=== PATIENT | female | born 1960 | race Caucasian/White ===

== ENCOUNTER 2017-06-15 07:56 | Emergency (ER) | payer BC ==
[2017-06-15 07:56] VITALS: BMI 37.1
[2017-06-15 08:14] VITALS: TEMP 98
--- NOTE | 2017-06-15 08:15 | ED PDOC ---
Arrival/HPI - General Time Seen by Provider: 06/15/17 07:57 Historian: Patient - History of Present Illness Narrative History of Present Illness (Text): you were treated in the ED today for hx of cholesterol, hypertension, thryoid, reflux and clarified having left shoulder/back of shoulder pain but otherwise without any fall/injury/neck or spinal tenderness or any other back pain/nausea/ vomiting/headache/dizziness/difficulty breathing/chest pain/abdomen pain/ numbness/tingling/loss of limb function/pain with urination/travel/prior blood clots/prior cancer/hormonal therapy. 06/15/17 08:12 Time/Duration: 24 hours Symptom Onset: Gradual Symptom Course: Unchanged Quality: Aching Severity Level: 2 Activities at Onset: Rest Context: Sitting Past Medical History - Provider Review Nursing Documentation Reviewed: Yes - Travel History Have you recently traveled outside [place] w/in the past 3 mons?: No - Cardiac Hx Hypertension: Yes - Pulmonary Hx Respiratory Disorders: No - Neurological Hx Neurological Disorder: No - HEENT Hx HEENT Disorder: No - Renal Hx Renal Disorder: No - Endocrine/Metabolic Hx Hypothyroidism: Yes - Hematological/Oncological Hx Blood Disorders: No Hx Hepatitis A: No Hx Hepatitis B: No Hx Hepatitis C: No - Integumentary Hx Dermatological Disorder: No - Musculoskeletal/Rheumatological Hx Musculoskeletal Disorders: No Hx Falls: No - Gastrointestinal Hx Crohn's Disease: No Hx Diverticulitis: No Hx Gall Bladder Disease: No Hx Gastritis: No Hx Pancreatitis: No - Genitourinary/Gynecological Hx Genitourinary Disorders: No - Psychiatric Hx Substance Use: No - Anesthesia Hx Anesthesia: Yes Hx Anesthesia Reactions: No Hx Malignant Hyperthermia: No - Suicidal Assessment Feels Threatened In Home Enviroment: No Family/Social History - Physician Review Nursing Documentation Reviewed: Yes Family/Social History: No Known Family HX Smoking Status: Never Smoked Hx Alcohol Use: No Hx Substance Use: No Allergies/Home Meds Allergies/Adverse Reactions: Allergies No Known Allergies Allergy (Verified 06/15/17 08:12) Home Medications: Home Meds Medication Instructions Recorded Confirmed Levothyroxine [Synthroid] 112 mcg PO DAILY 03/10/17 06/15/17 Nebivolol [Bystolic] 10 mg PO DAILY 03/10/17 06/15/17 Review of Systems - Review of Systems Constitutional: Normal Eyes: Normal ENT: Normal Respiratory: Normal Cardiovascular: Normal Gastrointestinal: Normal Genitourinary Female: Normal Musculoskeletal: Arthralgias Skin: Normal Neurological: Normal Endocrine: Normal Hemo/Lymphatic: Normal Psychiatric: Normal Physical Exam Vital Signs Reviewed: Yes Vital Signs Temp Pulse Resp BP Pulse Ox 06/15/17 09:14 66 16 142/76 99 06/15/17 08:49 62 18 152/108 H 98 06/15/17 08:12 98.0 F 62 18 194/97 H 98 Appearance: Positive for: Well-Appearing, Non-Toxic, Uncomfortable Pain Distress: None Mental Status: Positive for: Alert and Oriented X 3 - Systems Exam Head: Present: Atraumatic, Normocephalic Pupils: Present: PERRL Extroacular Muscles: Present: EOMI Conjunctiva: Present: Normal Ears: Present: Normal Mouth: Present: Moist Mucous Membranes Pharnyx: Present: Normal Nose (External): Present: Atraumatic Nose (Internal): Present: Normal Inspection Neck: Present: Normal Range of Motion, Other (no c-t-l spinal or paraspinal tenderness) Respiratory/Chest: Present: Clear to Auscultation, Good Air Exchange Cardiovascular: Present: Regular Rate and Rhythm Abdomen: No: Tenderness, Distention, Normal Bowel Sounds, Peritoneal Signs, Rebound, Guarding, McBurney's Point Tender, Rovsing's Sign Present, Hernias, Feeding Tubes, Ostomy Tubes, Mass/Organomegaly, Scars, Other Back: Present: Normal Inspection Upper Extremity: Present: Normal Inspection, Other (except: left upper extremity good range of motion/warm/sensation/pink/radial pulse with mild discomfort to the left front/back of shoulder and no other bony tenderness,) Lower Extremity: Present: Normal Inspection Neurological: Present: GCS=15, CN II-XII Intact, Speech Normal, Motor Func Grossly Intact Skin: Present: Warm, Normal Color Psychiatric: Present: Alert, Oriented x 3, Normal Insight, Normal Concentration Medical Decision Making ED Course and Treatment: you were treated in the ED today for hx of cholesterol, hypertension, thryoid, reflux and clarified having left shoulder/back of shoulder pain but otherwise without any fall/injury/neck or spinal tenderness or any other back pain/nausea/ vomiting/headache/dizziness/difficulty breathing/chest pain/abdomen pain/ numbness/tingling/loss of limb function/pain with urination/travel/prior blood clots/prior cancer/hormonal therapy. You were otherwise breathing easily, talking easily, good strength/sensation, walking easily, clear lungs, no abdomen tenderness, left upper extremity good range of motion/warm/sensation/ pink/radial pulse with mild discomfort to the left front/back of shoulder and no other bony tenderness, no fever temp 98, stable heart rate 62, stable breathing rate 16, excellent oxygen level 98% room air, elevated blood pressure 194/97 which we recommend repeat in 2-3 days primary care office to determine further treatment, you have blood tests no infection count 6.0, stable blood level hemoglobin 12/platelets 290, stable chemistry, heart blood test less than 0.01, test don't get menstrual periods anymore, radiology chest xray shows no active disease left shoulder xray shows no fracture, ECG normal sinus rhythm, toradol, flexeril, observation done in the ED with improvement, counselled to wear left sling for support and be non-weight bearing till first clinic vist and thus discharged home with ride. 1. Recommend tylenol or motrin as directed for pain. 2. Recommend flexeril as directed for breakthrough pain and don't work/drive/drink alcohol when using. 3. Recommend follow-up primary care 2-3 days to review symptoms, referral to orthopedics clinic and cardiology clinic to review your symptoms. 4. If any worsening pain, fever, chills, nausea , vomiting, difficulty breathing, numbness, loss of limb function, pain with urination or any medical condition then return to the ED. Report Date : 06/15/2017 09:46:57 Procedure: Chest xray Dictator : Braxton Moore MD IMPRESSION: No active disease. Report Date : 06/15/2017 10:11:41 PROCEDURE: Radiographs of the Left Shoulder Dictator : Braxton Moore MD IMPRESSION: Normal radiographs of the left shoulder. 06/15/17 10:32 06/15/17 10:32 Reassessment Condition: Re-examined, Improved - Lab Interpretations Lab Results: 06/15/17 08:20 06/15/17 08:20 Lab Results 06/15/17 08:20: Sodium 146, Potassium 4.2, Chloride 111 H, Carbon Dioxide 23, Anion Gap 16, BUN 12, Creatinine 0.7, Est GFR ( Amer) > 60, Est GFR (Non- Af Amer) > 60, Random Glucose 107, Calcium 9.2, Magnesium 2.1, Total Bilirubin 0.4, AST 25, ALT 23, Alkaline Phosphatase 94, Lactate Dehydrogenase 469, Total Creatine Kinase 92, Troponin I < 0.01, Total Protein 7.8, Albumin 4.2, Globulin 3.6, Albumin/Globulin Ratio 1.1, Lipase 71 06/15/17 08:20: PT 12.9 H, INR 1.12 H, APTT 29.3 06/15/17 08:20: WBC 6.0, RBC 4.26, Hgb 12.2, Hct 37.4, MCV 87.8, MCH 28.6, MCHC 32.6, RDW 14.1, Plt Count 290, MPV 10.4, Gran % 61.3, Lymph % (Auto) 29.3, [place] % (Auto) 7.9 H, Eos % (Auto) 1.2 L, Baso % (Auto) 0.3, Gran # 3.67, Lymph # ( Auto) 1.8, [place] # (Auto) 0.5, Eos # (Auto) 0.1, Baso # (Auto) 0.02 I have reviewed the lab results: Yes - RAD Interpretation Radiology Orders: 06/15/17 08:07 CHEST TWO VIEWS (PA/LAT) [RAD] Stat 06/15/17 08:08 SHOULDER LEFT [RAD] Stat 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 No Sleep Is patient sleeping during reassessment? No Presence of Pain Presence of Pain Yes Pain Scale Used Pain Scale Used Numeric Location Left, Right or Bilateral Left Pain Location Body Site Shoulder Description Description Intermittent Intensity of Pain at present 5 IVP Administration Document 06/15/17 08:30 BHARAT (Rec: 06/15/17 08:31 BHARAT [id number]) Charges for Administration # of IVP Administrations 1 Disposition/Present on Arrival - Present on Arrival Any Indicators Present on Arrival: No History of DVT/PE: No History of Uncontrolled Diabetes: No Urinary Catheter: No History Surgical Site Infection Following: None - Disposition Have Diagnosis and Disposition been Completed?: Yes Diagnosis: Shoulder pain, left Disposition: HOME/ ROUTINE Disposition Time: 10:33 Patient Plan: Discharge Condition: IMPROVED Additional Instructions: you were treated in the ED today for hx of cholesterol, hypertension, thryoid, reflux and clarified having left shoulder/back of shoulder pain but otherwise without any fall/injury/neck or spinal tenderness or any other back pain/nausea/ vomiting/headache/dizziness/difficulty breathing/chest pain/abdomen pain/ numbness/tingling/loss of limb function/pain with urination/travel/prior blood clots/prior cancer/hormonal therapy. You were otherwise breathing easily, talking easily, good strength/sensation, walking easily, clear lungs, no abdomen tenderness, left upper extremity good range of motion/warm/sensation/ pink/radial pulse with mild discomfort to the left front/back of shoulder and no other bony tenderness, no fever temp 98, stable heart rate 62, stable breathing rate 16, excellent oxygen level 98% room air, elevated blood pressure 194/97 which we recommend repeat in 2-3 days primary care office to determine further treatment, you have blood tests no infection count 6.0, stable blood level hemoglobin 12/platelets 290, stable chemistry, heart blood test less than 0.01, test don't get menstrual periods anymore, radiology chest xray shows no active disease left shoulder xray shows no fracture, ECG normal sinus rhythm, toradol, flexeril, observation done in the ED with improvement, counselled to wear left sling for support and be non-weight bearing till first clinic vist and thus discharged home with ride. 1. Recommend tylenol or motrin as directed for pain. 2. Recommend flexeril as directed for breakthrough pain and don't work/drive/drink alcohol when using. 3. Recommend follow-up primary care 2-3 days to review symptoms, referral to orthopedics clinic and cardiology clinic to review your symptoms. 4. If any worsening pain, fever, chills, nausea , vomiting, difficulty breathing, numbness, loss of limb function, pain with urination or any medical condition then return to the ED. Prescriptions: Cyclobenzaprine [Cyclobenzaprine HCl] 10 mg PO Q8 PRN 5 Days #15 tab PRN Reason: breakthrough pain Forms: WORK NOTE
[2017-06-15 08:43] LABS: BASO # 0.02 K/mm3 (0.0-2.0); BASO % 0.3 % (0.0-3.0); EOS # 0.1 (0.0-0.7); EOS % 1.2 % (1.5-5.0); GRAN # 3.67 (1.4-6.5); GRAN % 61.3 % (50.0-68.0); HEMOGLOBIN 12.2 g/dL (12.0-16.0); LYMPH # 1.8 (1.2-3.4); LYMPH % 29.3 % (22.0-35.0); MEAN CELL VOLUME 87.8 fl (80.0-105.0); MEAN CORPUSCULAR HEMOGLOBIN 28.6 pg (25.0-35.0); MEAN CORPUSCULAR HGB CONC 32.6 g/dl (31.0-37.0); MEAN PLATELET VOLUME 10.4 fl (7.0-11.0); MONO # 0.5 (0.1-0.6); MONO % 7.9 % (1.0-6.0); RBC 4.26 10^6/uL (3.5-6.1); RED CELL DISTRIBUTION WIDTH 14.1 % (11.5-14.5)
[2017-06-15 08:51] LABS: ALB/GLOB RATIO 1.1 (1.1-1.8); ALBUMIN 4.2 g/dL (3.0-4.8); ALT/SGPT 23 U/L (7-56); AST/SGOT 25 U/L (14-36); BLOOD UREA NITROGEN 12 mg/dL (7-21); CALCIUM 9.2 mg/dL (8.4-10.5); GFR AFRICAN-AMERICAN > 60; GFR NON-AFRICAN AMERICAN > 60; INR 1.12 (0.93-1.08); LIPASE 71 U/L (23-300); PARTIAL THROMBOPLASTIN TIME 29.3 Seconds (25.1-36.5); PROTHROMBIN TIME 12.9 SECONDS (9.4-12.5)
[2017-06-15 08:59] LABS: TROPONIN I < 0.01 ng/mL
[2017-06-15 09:14] VITALS: RESP 16
--- NOTE | 2017-06-15 09:48 | RAD ---
HISTORY: 56yoF, with left shoulder pain COMPARISON: No prior. TECHNIQUE: Chest PA and lateral FINDINGS: LUNGS: No active pulmonary disease. PLEURA: No significant pleural effusion identified. No pneumothorax apparent. CARDIOVASCULAR: Mild vascular congestion. Mild cardiomegaly. OSSEOUS STRUCTURES: No significant abnormalities. VISUALIZED UPPER ABDOMEN: Normal. OTHER FINDINGS: None. IMPRESSION: No active disease.
--- NOTE | 2017-06-15 10:13 | RAD ---
PROCEDURE: Radiographs of the Left Shoulder HISTORY: 56yoF, with left shoulder pain COMPARISON: No prior. FINDINGS: BONES: Normal. No fracture. JOINTS: Normal. Glenohumeral and acromioclavicular joints preserved. No osteoarthritis. SOFT TISSUES: Normal. OTHER FINDINGS: None. IMPRESSION: Normal radiographs of the left shoulder.
[2017-06-15 11:23] VITALS: BP 145/84; PULSE 64; O2SAT 98
--- NOTE | 2017-06-15 14:32 | CARD ---
APPROVED REPORT EKG Measurement Heart [id number] <Conclusion> Normal sinus rhythm Normal ECG
== END 2017-06-15 11:23 | disposition home or self-care (01) ==
LOC: ED 07:56
DX: M25.512 Pain in left shoulder (principal); I10 Essential (primary) hypertension; E78.00 Pure hypercholesterolemia, unspecified; K21.9 Gastro-esophageal reflux disease without esophagitis
CPT/HCPCS: 29240; 71046; 73030; 80053; 82550; 83615; 83690; 83735; 84484; 85025; 85610; 85730; 93005; 96374; 99283; J1885

== ENCOUNTER 2017-11-15 18:23 | Emergency (ER) | payer BC ==
[2017-11-15 18:23] VITALS: BMI 37.1
[2017-11-15 18:32] VITALS: RESP 18; TEMP 98.7
--- NOTE | 2017-11-15 18:40 | ED PDOC ---
Arrival/HPI - General Chief Complaint: Abnormal Skin Integrity Time Seen by Provider: 11/15/17 18:35 Historian: Patient - History of Present Illness Narrative History of Present Illness (Text): 11/15/17 18:36 57 y/o female, pmh including gerd/cholecystitis/pancreatitis, nkda, post menopausal, last tetanus over 10 years ago, c/o lt. hand 3rd digit finger laceration by knife x 1 hour. Pt. stated that she was slicing the chicken, accidentally cut the lt. hand 3rd digit, no numbness or tingling, was bleeding but resolved, no night sweat, no rash, no numbness or tingling, no palpitation, no other medical or psychological complaints. Past Medical History - Provider Review Nursing Documentation Reviewed: Yes - Infectious Disease Hx of Infectious Diseases: None - Reproductive Menopause: Yes - Cardiac Hx Hypertension: Yes - Pulmonary Hx Respiratory Disorders: No - Neurological Hx Neurological Disorder: No - HEENT Hx HEENT Disorder: No - Renal Hx Renal Disorder: No - Endocrine/Metabolic Hx Hypothyroidism: Yes - Hematological/Oncological Hx Blood Disorders: No Hx Hepatitis A: No Hx Hepatitis B: No Hx Hepatitis C: No - Integumentary Hx Dermatological Disorder: No - Musculoskeletal/Rheumatological Hx Musculoskeletal Disorders: No Hx Falls: No - Gastrointestinal Hx Crohn's Disease: No Hx Diverticulitis: No Hx Gall Bladder Disease: No Hx Gastritis: No Hx Pancreatitis: No - Genitourinary/Gynecological Hx Genitourinary Disorders: No - Psychiatric Hx Psychophysiologic Disorder: No Hx Substance Use: No - Surgical History Hx Cholecystectomy: Yes - Anesthesia Hx Anesthesia: Yes Hx Anesthesia Reactions: No Hx Malignant Hyperthermia: No - Suicidal Assessment Feels Threatened In Home Enviroment: No Family/Social History - Physician Review Nursing Documentation Reviewed: Yes Family/Social History: Unknown Family HX Smoking Status: Never Smoked Hx Alcohol Use: No Hx Substance Use: No Allergies/Home Meds Allergies/Adverse Reactions: Allergies No Known Allergies Allergy (Verified 11/15/17 18:32) Home Medications: Home Meds Medication Instructions Recorded Confirmed Levothyroxine [Synthroid] 112 mcg PO DAILY 03/10/17 11/15/17 Nebivolol [Bystolic] 10 mg PO DAILY 03/10/17 11/15/17 Review of Systems - Review of Systems Constitutional: absent: Fatigue, Fevers Eyes: absent: Vision Changes ENT: absent: Hearing Changes Respiratory: absent: SOB, Cough Cardiovascular: absent: Chest Pain Gastrointestinal: absent: Abdominal Pain, Nausea, Vomiting Skin: Laceration. absent: Rash, Pruritis, Skin Lesions, Cellulitis Neurological: absent: Headache, Dizziness, Focal Weakness Psychiatric: absent: Anxiety, Depression, Suicidal Ideation Physical Exam Vital Signs Reviewed: Yes Vital Signs Temp Pulse Resp BP Pulse Ox 11/15/17 18:30 98.7 F 59 L 18 123/80 97 Temperature: Afebrile Blood Pressure: Normal Pulse: Bradycardic Respiratory Rate: Normal Appearance: Positive for: Well-Appearing, Non-Toxic, Comfortable Pain Distress: Mild Mental Status: Positive for: Alert and Oriented X 3 - Systems Exam Head: Present: Atraumatic, Normocephalic Pupils: Present: PERRL Extroacular Muscles: Present: EOMI Conjunctiva: Present: Normal Mouth: Present: Moist Mucous Membranes Neck: Present: Normal Range of Motion Respiratory/Chest: Present: Clear to Auscultation, Good Air Exchange. No: Respiratory Distress, Accessory Muscle Use Cardiovascular: Present: Regular Rate and Rhythm, Normal S1, S2. No: Murmurs Abdomen: No: Tenderness, Distention, Peritoneal Signs Back: Present: Normal Inspection Upper Extremity: Present: Normal Inspection, Other (lt. hand 3rd digit visible v-shaped laceration superficially laterally noted to have approx. 2.5cm superficial laceration noted with no visible nail/bone/tendon involvement, FROM without limitation, sensation intact, motor 5/5, +radial pulse, neurovascular intact. ). No: Cyanosis, Edema Lower Extremity: Present: Normal Inspection. No: Edema Neurological: Present: GCS=15, CN II-XII Intact, Speech Normal Skin: Present: Warm, Dry, Normal Color. No: Rashes Psychiatric: Present: Alert, Oriented x 3, Normal Insight, Normal Concentration Medical Decision Making ED Course and Treatment: 11/15/17 18:47 -keflex/tdap, motrin -wound clear and would suture 11/15/17 18:50 PROCEDURE: LACERATION REPAIR Performed by the emergency provider Location: lt. hand 3rd digit Length: 2.5 cm Description: {"clean wound edges","no foreign bodies"} Distal CMS: Normal. No deficits. Neurovascularly intact. Anesthesia: Lidocaine 1% 0.5cc Preparation: The wound was cleaned with NS 1000cc and Betadyne. The area was prepped and draped in the usual sterile fashion. Exploration: The wound was explored and no foreign bodies were found. Procedure: The wound was closed with 5-0 nylon. There was {good / appropriate / adequate / loose} approximation. In total, 5 were used. Post-Procedure: Good closure and hemostasis. The patient tolerated the procedure well and there were no complications. CSM remains intact. Post procedure dressing applied. total procedure 20 minutes. 11/15/17 19:33 -Pt. feels much better -Discharge home with keflex, motrin, keep the dressing dry and clean for 2 days, start cleaning on day 3 with soap and water while keep the wound open on day 3, sutures need to be removed by day 12, follow up with your own pmd and hand specialist within 2 days, return to the ER for any new or worsening signs or symptoms. 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 Disposition/Present on Arrival - Present on Arrival Any Indicators Present on Arrival: No History of DVT/PE: No History of Uncontrolled Diabetes: No Urinary Catheter: No History of Decub. Ulcer: No History Surgical Site Infection Following: None - Disposition Have Diagnosis and Disposition been Completed?: Yes Diagnosis: Finger laceration Disposition: HOME/ ROUTINE Disposition Time: 18:48 Patient Plan: Discharge Condition: GOOD Additional Instructions: -Discharge home with keflex, motrin, keep the dressing dry and clean for 2 days, start cleaning on day 3 with soap and water while keep the wound open on day 3, sutures need to be removed by day 12, follow up with your own pmd and hand specialist within 2 days, return to the ER for any new or worsening signs or symptoms. Prescriptions: Cephalexin [cephalexin] 500 mg PO TID #24 cap Ibuprofen [Motrin Tab] 600 mg PO QID PRN #30 tab PRN Reason: Other Referrals: Michell Byers MD [Primary Care Provider] - Follow up with primary Kimo Mcgrath III, MD [Medical Doctor] - Follow up with primary Forms: [facility] (Indonesian), WORK NOTE
[2017-11-15] MEDS ORDERED: TDAP Vaccine 0.5 mL Syr IM ONE (18:43)
[2017-11-15] MEDS ORDERED: Lidocaine 1% 5ml Abboject ONE (19:12)
[2017-11-15 19:50] VITALS: BP 126/78; PULSE 63; O2SAT 100
== END 2017-11-15 19:49 | disposition home or self-care (01) ==
LOC: ED 18:23
DX: S61.213A Laceration without foreign body of left middle finger without damage to nail, initial encounter (principal); W26.0XXA Contact with knife, initial encounter; Z23 Encounter for immunization; I10 Essential (primary) hypertension; E03.9 Hypothyroidism, unspecified

== ENCOUNTER 2018-03-11 19:35 | Emergency (ER) | payer BC ==
[2018-03-11 20:52] VITALS: BMI 36.3
[2018-03-11] MEDS ORDERED: Lidocaine 5% Patch TD STA (22:12)
--- NOTE | 2018-03-11 22:21 | ED PDOC ---
Arrival/HPI - General Chief Complaint: Lower Extremity Problem/Injury Time Seen by Provider: 03/11/18 20:03 Historian: Patient - History of Present Illness Narrative History of Present Illness (Text): 03/11/18 22:18 57-year-old female reports pain in the L lower back radiating to her left buttock and the posterior aspect of her left leg, beginning earlier today. States that she did not take any medication for her symptoms. Otherwise: (-) trauma, (-) injruy, (-) abdominal pain, (-) paresthesias, (-) weakness, (-) acute bowel or bladder dysfunction, (-) urinary symptoms, (-) fever. Has no history of prior back problem. PMD Daniels Past Medical History - Infectious Disease Hx of Infectious Diseases: None - Cardiac Hx Hypertension: Yes - Pulmonary Hx Respiratory Disorders: No - Neurological Hx Neurological Disorder: No - HEENT Hx HEENT Disorder: No - Renal Hx Renal Disorder: No - Endocrine/Metabolic Hx Hypothyroidism: Yes - Hematological/Oncological Hx Blood Disorders: No Hx Hepatitis A: No Hx Hepatitis B: No Hx Hepatitis C: No - Integumentary Hx Dermatological Disorder: No - Musculoskeletal/Rheumatological Hx Musculoskeletal Disorders: No Hx Falls: No - Gastrointestinal Hx Crohn's Disease: No Hx Diverticulitis: No Hx Gall Bladder Disease: No Hx Gastritis: No Hx Pancreatitis: No - Genitourinary/Gynecological Hx Genitourinary Disorders: No - Psychiatric Hx Psychophysiologic Disorder: No Hx Substance Use: No - Surgical History Hx Cholecystectomy: Yes - Anesthesia Hx Anesthesia: Yes Hx Anesthesia Reactions: No Hx Malignant Hyperthermia: No - Suicidal Assessment Feels Threatened In Home Enviroment: No Family/Social History Family/Social History: No Known Family HX Smoking Status: Never Smoked Hx Alcohol Use: No Hx Substance Use: No Allergies/Home Meds Allergies/Adverse Reactions: Allergies No Known Allergies Allergy (Verified 03/11/18 20:52) Home Medications: Home Meds Medication Instructions Recorded Confirmed Levothyroxine [Synthroid] 112 mcg PO DAILY 03/10/17 11/15/17 Nebivolol [Bystolic] 10 mg PO DAILY 03/10/17 11/15/17 Review of Systems - Review of Systems Constitutional: absent: Fatigue, Fevers Respiratory: absent: SOB, Cough Cardiovascular: absent: Chest Pain, Palpitations Gastrointestinal: absent: Abdominal Pain, Nausea, Vomiting Genitourinary Female: absent: Dysuria, Frequency Musculoskeletal: Back Pain. absent: Arthralgias, Neck Pain Neurological: absent: Headache, Dizziness Physical Exam Pain Distress: Mild Mental Status: Positive for: Alert and Oriented X 3 - Systems Exam Head: Present: Atraumatic, Normocephalic Pupils: Present: PERRL Extroacular Muscles: Present: EOMI Conjunctiva: Present: Normal Mouth: Present: Moist Mucous Membranes Neck: Present: Normal Range of Motion Respiratory/Chest: Present: Clear to Auscultation, Good Air Exchange. No: Respiratory Distress, Accessory Muscle Use Cardiovascular: Present: Regular Rate and Rhythm, Normal S1, S2. No: Murmurs Abdomen: No: Tenderness, Distention, Peritoneal Signs Back: Present: Normal Inspection, Paraspinal Tenderness (+L paralumbar tenderness, +tenderness to the L sciatic notch). No: Midline Tenderness Upper Extremity: Present: Normal Inspection. No: Cyanosis, Edema Lower Extremity: Present: Normal Inspection. No: Edema Neurological: Present: GCS=15, CN II-XII Intact, Speech Normal, Motor Func Grossly Intact, Normal Sensory Function, Gait Normal Skin: Present: Warm, Dry, Normal Color. No: Rashes Psychiatric: Present: Alert, Oriented x 3, Normal Insight, Normal Concentration Medical Decision Making ED Course and Treatment: 03/11/18 22:18 Plan : - toradol IM - lidoderm patch - flexeril PO Advised to follow up with primary care physician in 1-2 days without fail. Advised to take medication as prescribed. Return to the emergency room at any time for any new or worsening symptoms. Patient states she fully agrees with and understands discharge instructions. States that she agrees with the plan and disposition. Verbalized and repeated discharge instructions and plan. I have given the patient opportunity to ask any additional questions. - Medication Orders Current Medication Orders: Discontinued Medications Cyclobenzaprine HCl (Flexeril) 10 mg PO STAT STA Stop: 03/11/18 22:13 Ketorolac Tromethamine (Toradol) 60 mg IM STAT STA Stop: 03/11/18 22:13 Lidocaine (Lidoderm) 1 ea TD STAT STA Stop: 03/11/18 22:13 - PA / SPECIFICATION WRITER / Resident Statement MD/DO has reviewed & agrees with the documentation as recorded. Disposition/Present on Arrival - Present on Arrival Any Indicators Present on Arrival: No History of DVT/PE: No History of Uncontrolled Diabetes: No Urinary Catheter: No History of Decub. Ulcer: No History Surgical Site Infection Following: None - Disposition Have Diagnosis and Disposition been Completed?: Yes Diagnosis: Sciatica Disposition: HOME/ ROUTINE Disposition Time: 22:30 Patient Plan: Discharge Condition: STABLE Discharge Instructions (ExitCare): Sciatica (DC) Additional Instructions: Thank you for letting us take care of you today. You were treated for sciatica. The emergency medical care you received today was directed at your acute symptoms. If you were prescribed any medication, please fill it and take as directed. It may take several days for your symptoms to resolve. Return to the Emergency Department if your symptoms worsen, do not improve, or if you have any other problems. Please contact your doctor in 2 days for re-evaluation and follow up. Bring any paperwork you were given at discharge with you along with any medications you are taking to your follow up visit. Our treatment cannot replace ongoing medical care by a primary care provider (PCP) outside of the emergency department. Thank you for allowing the [facility] team to be part of your care today. Prescriptions: Cyclobenzaprine [Cyclobenzaprine HCl] 10 mg PO TID PRN #15 tab PRN Reason: Muscle Spasm Meloxicam [Mobic] 15 mg PO DAILY #20 tab Referrals: Michell Byers MD [Primary Care Provider] - Follow up with primary Forms: [employer] (Italian), WORK NOTE
[2018-03-11 22:45] VITALS: RESP 18; O2SAT 98
== END 2018-03-11 22:43 | disposition home or self-care (01) ==
LOC: ED 19:35
DX: M54.30 Sciatica, unspecified side (principal)